=== PATIENT | male | born 1945 | race Caucasian/White ===

== ENCOUNTER 2017-07-11 12:10 | Day surgery (SDC) | payer MEDICARE, OTHER ==
[~2017-07-11] VITALS: Ht 175.3 cm; Wt 78.0 kg
--- NOTE | 2017-07-11 14:09 | NUR ---
07/11/17 1409 Marielle Mas 1406 - PT ARRIVED TO PACU. PT MAINTAINING OWN AIRWAY. PT DENIES PAIN AND NAUSEA.
--- NOTE | 2017-07-13 10:03 | OR ---
[facility] [address] [place], [place] [address] Signed DATE OF OPERATION: 07/11/2017 SURGEON: Stewart Sorto MD PREOPERATIVE DIAGNOSIS: Colon screening. POSTOPERATIVE DIAGNOSES: 1. Sigmoid diverticulosis. 2. Hyperplasia of mucosa of the appendiceal orifice. PROCEDURE: Total colonoscopy to cecum with biopsy of appendiceal orifice. ANESTHESIA: Intravenous sedation, fentanyl 150 mcg, Versed 6 mg. INDICATION: This 71-year-old white man remains in excellent health. He is referred by Dr. Rose for his initial colonoscopy. He has no symptoms of bleeding, diarrhea, or constipation. He has no family history of colon cancer. He understands the risks of colonoscopy including, but not limited to bleeding, infection, and perforation and wishes to proceed. FINDINGS: The prep was excellent. Complete colonoscopy was undertaken to the cecum. There was hyperplasia at the orifice of the appendix, but no obvious adenomatous change proper. Biopsies were obtained to be certain of this. There were diverticula of the sigmoid colon, but no sign of stricture or neoplasm. Retroflexed view of the rectum was normal. There was no sign of other abnormality. PROCEDURE IN DETAIL: The patient was brought to the endoscopy suite and placed in lateral decubitus position, given intravenous sedation to the point of slurred speech and nystagmus. Digital rectal examination was normal. An Olympus video colonoscope was passed in the rectum and manipulated throughout the colon ultimately intubating the cecum itself. The ileocecal valve and appendiceal orifice were visualized. The appendiceal orifice appeared to have hyperplastic mucosal changes. There was no adenoma proper. Narrow band imaging was employed affirming this. Electronically Signed By: STEWART SORTO MD 07/13/17 1003 PATIENT NAME: ROCHELLE ROMAN OPERATIVE REPORT DATE OF : 45 PHYSICIAN: STEWART SORTO MD REPORT #: [id number] REPORT IS CONFIDENTIAL AND NOT TO BE RELEASED WITHOUT AUTHORIZATION [facility] [address] [place] [id number] Signed Biopsies were taken of the appendiceal orifice to be certain there was no sign of adenomatous change. The scope was then withdrawn and examination throughout showed no sign of abnormality until the sigmoid where numerous diverticula were noted. There was no sign of stricture or secondary effect from the diverticula. Retroflexed view in the rectum was normal. Scope was removed, and the patient was taken to the recovery room in good condition. CONCLUDING DIAGNOSIS: 1. Hyperplasia of the mucosa of the appendiceal orifice (biopsied). 2. Sigmoid diverticulosis. PLAN: Recommend high-fiber diet. We will review his pathology report as regard to the biopsy. MD SHANNON Wyatt/TRI /[id number] cc: Iván Rose DO Electronically Signed By: STEWART SORTO MD 07/13/17 1003 PATIENT NAME: ROCHELLE ROMAN JANICE OPERATIVE REPORT DATE OF : 45 PHYSICIAN: STEWART SORTO MD REPORT #: [id number] REPORT IS CONFIDENTIAL AND NOT TO BE RELEASED WITHOUT AUTHORIZATION
== END 2017-07-11 14:50 | disposition home or self-care (01) ==
LOC: DS 12:10 → OPS 12:10 → DS 13:00 → OPS 13:00
PROVIDERS: Surgery
PROC: 0DBH8ZX Excision of Cecum, Via Natural or Artificial Opening Endoscopic, Diagnostic (ICD-10-PCS; principal; 2017-07-11 13:00)
DX: Z12.11 Encounter for screening for malignant neoplasm of colon (principal); K63.5 Polyp of colon; K57.30 Diverticulosis of large intestine without perforation or abscess without bleeding; Z87.442 Personal history of urinary calculi; Z98.890 Other specified postprocedural states
CPT/HCPCS: 88305; 99153; G0500; J2250; J3010; J7120

== ENCOUNTER 2021-04-16 07:45 | Day surgery (SDC) | payer MEDICARE ==
[~2021-04-16] VITALS: Ht 175.3 cm; Wt 78.6 kg
[2021-04-16] MEDS ORDERED: PRESERVISION A1 EAC1 PO (08:14)
--- NOTE | 2021-04-16 10:14 | NUR ---
PT ALERT, ORIENTED AND SUPPORTED BY HIS PATRICK. PT HAS NOT NEEDED SURGERY SINCE HIS EARLY TEENS, AND EXPRESSED SOME ANXIETY. GAVE ENCOURAGEMENT HELPED THEM KNOW MORE WHAT TO EXPECT. GAVE COMFORT WITH SCRIPTURE AND PRAYER. WILL FOLLOW NEEDED
--- NOTE | 2021-04-16 13:02 | NUR ---
04/16/21 1302 Jackeline Pagan 1257-PATIENT ARRIVED TO PACU ON 6L MASK RR EVEN NONAROUSABLE ORAL AIRWAY IN PLACE. IVF INFUSING. SR. RIGHT GROIN CDI.
[2021-04-16] MEDS ORDERED: IBUPROFEN600 MG PO (13:15)
[2021-04-16] MEDS ORDERED: OXYCODON-ACETA1 EAC2 PO (13:16)
[2021-04-16] MEDS ORDERED: ACETAMINOPHEN500 MG PO (13:16)
--- NOTE | 2021-04-16 14:05 | NUR ---
1355: PATIENT BACK IN DAY SURGERY ROOM FROM PACU. RATES PAIN 3/10 IN RIGHT GROIN. DECLINES PAIN MEDICATION AT THIS TIME. RIGHT GROIN DRESSING CDI. IV SITE WNL. PATIENT ASSISTED OOB AND TO BATHROOM WITH HELP FROM OTHER RN AND STUDENT RN. GAIT STEADY. VOID WITHOUT DIFFICULTY. ICE WATER AND JELLO GIVEN TO PATIENT. BACK IN ROOM. CALL LIGHT WITHIN REACH.
--- NOTE | 2021-04-16 15:23 | NUR ---
1430: PATIENT ASSISTED TO BATHROOM. GAIT STEADY. ONCE BACK TO ROOM PATIENT DRESSED INDEPENDENTLY. 1445: PATIENT MEDICATED FOR PAIN WITH 1 TAB OF PERCOCET. 1455: DISCHARGE INSTRUCTIONS GIVEN TO PATIENT AND . PATIENT WILL WAIT UNTIL 1510 FOR DISCHARGE AFTER RECEIVING PERCOCET. 1510: IV DC'D WNL. TIP INTACT. DRESSING APPLIED. PATIENT DISCHARGED TO HOME VIA WHEELCHAIR WITH AND DAUGHTER.
--- NOTE | 2021-04-17 10:27 | OR ---
[facility] [address] [place], [place] [address] Signed DATE OF OPERATION: 04/16/2021 SURGEON: Stewart Sorto MD PREOPERATIVE DIAGNOSIS: Right inguinal hernia. POSTOPERATIVE DIAGNOSES: 1. Right direct inguinal hernia. 2. Lipoma of the cord. PROCEDURES: 1. Repair of right inguinal hernia with implantation of Prolene mesh underlay technique. 2. Excision of lipoma of the cord. ANESTHESIA: General LMA, Twin Rg CRNA and Stewart Kaye CRNA. 1. Preoperative ilioinguinal iliohypogastric nerve block (Twin Rg CRNA). 2. Local anesthetic Marcaine 0.25% with epinephrine 20 mL. INDICATION: This 75-year-old white man is a patient of Dr. Iván Prado of [place], [place] and was seen by me a few days ago, having been trying to pull out a [place] without the aid of a fence extractor. This caused severe and immediate right groin pain, which was quite disabling. He was then subsequently found to have a palpable reducible mass of the right groin, which has been tender. The left side is normal clinically. Clinical examination of the right side shows a reducible right inguinal hernia. Both testicles are normal. He was admitted at this time to undergo repair of the right inguinal hernia. He understands the risks of bleeding, infection, recurrence, chronic pain syndrome, and other unforeseen complications. Understanding this, he wished to proceed. FINDINGS: The ilioinguinal nerve was well identified and preserved. It was densely fused to the external oblique fascia and was with dissection from it and preserved. The cord itself had no indirect sac. There was a somewhat bulky cord lipoma which was excised. The dominant hernia was that of a direct defect in the midportion of the inguinal canal. Implantation of Prolene mesh in an underlay technique allowed for complete repair of the defect. Electronically Signed By: SETWART SORTO MD 04/17/21 1027 PATIENT NAME: ROCHELLE ROMAN OPERATIVE REPORT DATE OF : 45 REPORT #: [id number] PHYSICIAN: STEWART SORTO MD PCP: IVÁN PRADO DO REPORT IS CONFIDENTIAL AND NOT TO BE RELEASED WITHOUT AUTHORIZATION [facility] [address] [place], [place] [address] Signed DESCRIPTION OF PROCEDURE: The patient was brought to the operating room, given a general LMA type anesthetic. Preoperative antibiotic Ancef was given. Sequential compression device stockings were used and heparin subcutaneously administered. The lower abdomen was clipped and prepared with a chlorhexidine solution and draped sterilely. A very small incision was made cephalad to his pubic tubercle and dissection carried through the subcutaneous tissue with blunt and electrocautery dissection. The external oblique was identified and incised along its fibers. Noted was an ilioinguinal nerve branch which was densely fused with the external oblique. This was freed in continuity with the external oblique, preserving the nerve. The cord was freed from the canal using blunt and electrocautery dissection and encircled with a Mary drain. Examination showed a cord lipoma lateral to the cord and in the depths of the wound of the floor, a distinct and quite obvious direct hernia with fascial defect of approximately 2-3 cm. Further dissection around the cord allowed for freeing of the lipoma of the cord ultimately ascertaining that it did not have any indirect hernia sac associated with it. The base of the lipoma was secured with a hemostat, lipoma excised and the base ligated with 2-0 silk suture. An Allis clamp was applied to the tendon of the transversus abdominis and using a blunt and electrocautery dissection, the attenuated fibers of the fascia transversalis were incised with electrocautery dividing the fascial defect accounting for the direct hernia. Using blunt dissection, the properitoneal fat was free. A segment of Prolene mesh was cut to an elliptical configuration and secured in an underlay technique with interrupted 2-0 Prolene sutures. A defect was cut in the graft to accommodate the cord structures. Careful suturing of the graft laterally was undertaken so as to avoid encumbrance of the ilioinguinal nerve. The ilioinguinal nerve was replaced into the canal. An additional 20 mL of 0.25% Marcaine with epinephrine was injected locally. The external oblique was reapproximated with running 2-0 Vicryl suture covering the cord and the repair as well as the ilioinguinal nerve quite well. Tiffanie layer was reapproximated with interrupted 2-0 Vicryl and the skin was closed with running subcuticular 3-0 Vicryl. Steri-Strips were applied as was an Acticoat dressing. The patient tolerated the procedure well. BLOOD LOSS: Minimal. COMPLICATIONS: None. Electronically Signed By: STEWART SORTO MD 04/17/21 1027 PATIENT NAME: ROCHELLE ROMAN OPERATIVE REPORT DATE OF : 45 REPORT #: [id number] PHYSICIAN: STEWART SORTO MD PCP: IVÁN PRADO DO REPORT IS CONFIDENTIAL AND NOT TO BE RELEASED WITHOUT AUTHORIZATION [address] [address] Signed MD SHANNON Wyatt/MODL /[id number] cc: Iván Prado DO Copies: IVÁN PRADO DO ~ Electronically Signed By: STEWART SORTO MD 04/17/21 1027 PATIENT NAME: ROCHELLE ROMAN OPERATIVE REPORT DATE OF : 45 REPORT #: [id number] PHYSICIAN: STEWART SORTO MD PCP: IVÁN PRADO DO REPORT IS CONFIDENTIAL AND NOT TO BE RELEASED WITHOUT AUTHORIZATION
--- NOTE | 2021-04-17 16:07 | PATH ---
[facility] [address] [facility] [place], [place] [address] Signed SPECIMEN(S): A LIPOMA OF CORD SPECIMEN SOURCE: A. LIPOMA OF CORD CLINICAL HISTORY: Right inguinal hernia FINAL PATHOLOGIC DIAGNOSIS: Lipoma of cord: - Fibroadipose tissue with vascular congestion, consistent with features seen in lipoma of cord. TWK:em:C2NR MICROSCOPIC EXAMINATION: Histologic sections of all submitted blocks are examined by light microscopy. These findings, together with the gross examination, support the pathologic diagnosis. GROSS DESCRIPTION: The specimen, labeled "Shruthi DASH," and designated on the requisition "lipoma of cord," is received in formalin and consists of one fragment of yellow-smith, fatty to pink-smith, membranous soft tissue (4.5 x 0 x 1.2 cm). The specimen is serially sectioned to reveal a yellow-smith to hemorrhagic soft cut surface. Uncrater sections are submitted in A1. AC (under the direct supervision of a pathologist) The Gross Description was prepared using a voice recognition system. The report was reviewed for accuracy; however, sound-alike word errors, addition and/or deletions may occur. If there is any question about this report, please contact Client Services. PERFORMING LABORATORY: The technical component was performed by [employer], [address] [place] [id number] (Strike Off Machine Operator: Jasmin Paniagua MD; CLIA# [id number]). The professional interpretation was performed by [facility], [facility], [address] [place] [address]. Diagnostician: Kobi Em MD Pathologist Electronically Signed 04/17/2021 PATIENT NAME: ROCHELLE ROMAN PATHOLOGY DATE OF : 45 REPORT #: [id number] PHYSICIAN: [facility] PCP: PAUL PRADO DO REPORT IS CONFIDENTIAL AND NOT TO BE RELEASED WITHOUT AUTHORIZATION [address] [place], [place] [address] Signed Copies: ~ PATIENT NAME: ROCHELLE ROMAN PATHOLOGY DATE OF : 45 REPORT #: [id number] PHYSICIAN: [facility] PCP: PAUL PRADO DO REPORT IS CONFIDENTIAL AND NOT TO BE RELEASED WITHOUT AUTHORIZATION
== END 2021-04-16 15:10 | disposition home or self-care (01) ==
LOC: DS 07:45
PROVIDERS: ATTEND Surgery
PROC: 0VBF0ZZ Excision of Right Spermatic Cord, Open Approach (ICD-10-PCS; 2021-04-16)
PROC: 0YU50JZ Supplement Right Inguinal Region with Synthetic Substitute, Open Approach (ICD-10-PCS; principal; 2021-04-16 09:15)
DX: K40.90 Unilateral inguinal hernia, without obstruction or gangrene, not specified as recurrent (principal); D17.6 Benign lipomatous neoplasm of spermatic cord
CPT/HCPCS: 76942; C1781; J0690; J1100; J1644; J2001; J2250; J2405; J2704; J2795; J3010; J7121

== ENCOUNTER 2021-05-23 13:16 | Emergency (ER) | payer MEDICARE ==
[~2021-05-23] VITALS: Ht 175.3 cm; Wt 78.5 kg
[~2021-05-23 13:16] MED LIST: ACETAMINOPHEN500 MG PO; IBUPROFEN600 MG PO; OXYCODON-ACETA1 EAC2 PO; PRESERVISION A1 EAC1 PO
--- NOTE | 2021-05-23 15:02 | EKG ---
[facility] [address] [facility] [place] [address] Signed Sinus tachycardia Left axis deviation Cannot rule out Anterior infarct , age undetermined Abnormal ECG No previous ECGs available Confirmed by CHIKA COCHRAN MD ([id number]) on 05/23/2021 3:02:00 PM Electronically Signed By: CHIKA COCHRAN MD 05/23/21 1502 PATIENT NAME: ROCHELLE ROMAN Electrocardiogram DATE OF : 45 PHYSICIAN: CHIKA COCHRAN MD REPORT #: [id number] REPORT IS CONFIDENTIAL AND NOT TO BE RELEASED WITHOUT AUTHORIZATION
== END 2021-05-23 17:12 | disposition home or self-care (01) ==
LOC: ED 13:16
DX: E86.0 Dehydration (principal); R00.0 Tachycardia, unspecified; R94.6 Abnormal results of thyroid function studies
CPT/HCPCS: 71045; 80053; 81001; 83735; 84443; 84484; 85025; 93005; 93010; 99285-25; J7030